=== PATIENT | male | born 1960 | race African-American/Black ===

== ENCOUNTER 2018-06-22 18:50 | Emergency (ER) | payer MEDICAID ==
[~2018-06-22] VITALS: Ht 175.3 cm; Wt 90.0 kg
[2018-06-22] MEDS ORDERED: HYDR12.529 PO (19:00)
[2018-06-22] MEDS ORDERED: KETOROLAC 60MG/2ML VIAL IM ONE (19:15)
[2018-06-22] MEDS ORDERED: LIDOCAINE 1%/EPI 1:100,000 10 ML VIAL IJ ONE (20:45)
[2018-06-22] MEDS ORDERED: LIDOCAINE HCL/PF 1% 10 MG/ML 5ML VIAL IJ ONE (20:45)
[2018-06-22] MEDS ORDERED: TETANUS, DIPHTHERIA, PERTUSSIS VAC/PF 0.5ML (>7YR OLD) IM ONE (21:15)
[2018-06-22] MEDS ORDERED: ACETAMINOPHEN WITH CODEINE 300/30MG TABLET PO ONE (21:15)
[2018-06-22 22:06] VITALS: BP 172/83
== END 2018-06-22 22:09 | disposition home or self-care (01) ==
LOC: ER 18:50
DX: S01.81XA Laceration without foreign body of other part of head, initial encounter (principal); J45.909 Unspecified asthma, uncomplicated; I10 Essential (primary) hypertension; Z88.6 Allergy status to analgesic agent; Z79.899 Other long term (current) drug therapy; Y08.89XA Assault by other specified means, initial encounter; Y93.89 Activity, other specified; Y92.89 Other specified places as the place of occurrence of the external cause; Y99.8 Other external cause status
CPT/HCPCS: 12013; 70450; 90471; 90715; 96372; 99284; J1885; J3490

== ENCOUNTER 2018-07-02 07:50 | Emergency (ER) | payer MEDICAID ==
[~2018-07-02] VITALS: Ht 170.2 cm; Wt 110.0 kg
[~2018-07-02 07:50] MED LIST: HYDR12.529 PO
[2018-07-02 08:07] VITALS: BP 157/94
== END 2018-07-02 09:42 | disposition home or self-care (01) ==
LOC: ER 07:50
DX: Z48.02 Encounter for removal of sutures (principal)
CPT/HCPCS: 99281; 99282

== ENCOUNTER 2018-11-21 19:34 | Emergency (ER) | payer MEDICAID ==
[~2018-11-21] VITALS: Ht 170.2 cm; Wt 105.0 kg
[2018-11-21] MEDS ORDERED: IPRATROPIUM BROMIDE (0.02%) 0.5MG/2.5ML NEB HHN STA (20:24)
[2018-11-21] MEDS ORDERED: PREDNISONE 20MG TABLET PO STA (20:24)
[2018-11-21] MEDS ORDERED: ALBUTEROL (0.083%) 2.5MG/3ML NEB HHN STA (20:24)
[2018-11-21] MEDS ORDERED: DIPHENHYDRAMINE 25MG CAPSULE PO ONE (20:30)
[2018-11-21 20:52] VITALS: BP 126/78
== END 2018-11-21 21:16 | disposition home or self-care (01) ==
LOC: ER 19:34
DX: J45.901 Unspecified asthma with (acute) exacerbation (principal); T14.8XXA Other injury of unspecified body region, initial encounter; Z87.828 Personal history of other (healed) physical injury and trauma; Z98.890 Other specified postprocedural states; Z87.891 Personal history of nicotine dependence; Z59.0 Homelessness; Z88.6 Allergy status to analgesic agent; W57.XXXA Bitten or stung by nonvenomous insect and other nonvenomous arthropods, initial encounter; Y93.89 Activity, other specified; Y92.89 Other specified places as the place of occurrence of the external cause
CPT/HCPCS: 94640; 99283; J7512; J7611; Q0163

== ENCOUNTER 2018-11-27 15:15 | Emergency (ER) | payer MEDICAID ==
[~2018-11-27] VITALS: Ht 172.7 cm; Wt 105.0 kg
[2018-11-27] MEDS ORDERED: TRAMADOL 50MG TABLET PO ONE (16:30)
[2018-11-27 17:24] VITALS: BP 141/82
== END 2018-11-27 17:30 | disposition home or self-care (01) ==
LOC: ER 15:15
DX: M54.5 Low back pain (principal); Z98.890 Other specified postprocedural states; Z88.6 Allergy status to analgesic agent
CPT/HCPCS: 99283

== ENCOUNTER 2018-11-27 22:55 | Emergency (ER) | payer MEDICAID ==
[~2018-11-27] VITALS: Ht 170.2 cm; Wt 106.0 kg
[2018-11-27 23:31] VITALS: BP 167/105
== END 2018-11-27 23:40 | disposition left against medical advice (07) ==
LOC: ER 22:55
DX: M79.604 Pain in right leg (principal); Z53.21 Procedure and treatment not carried out due to patient leaving prior to being seen by health care provider